=== PATIENT | male | born 1995 ===

== ENCOUNTER 2017-08-21 18:20 | Emergency (ER) | payer MEDICAID, SELFPAY ==
[2017-08-21 18:42] VITALS: O2SAT 99
[2017-08-21] MEDS ORDERED: Psyllium Packet PO STA (19:02)
[2017-08-21] MEDS ORDERED: Sodium Chloride 0.9% 1,000 ML IV SCH (19:15)
--- NOTE | 2017-08-21 19:23 | ED PDOC ---
HPI: Abdomen Time Seen by Provider: 08/21/17 18:54 Chief Complaint (Nursing): Abdominal Pain Chief Complaint (Provider): Diarhhea History Per: Patient History/Exam Limitations: no limitations Onset/Duration Of Symptoms: Days (three ), Persistent Outside of [place] travel?: No Current Symptoms Are (Timing): Still Present Severity: Mild Location Of Pain/Discomfort: Diffuse Quality Of Discomfort: Other (no pain) Associated Symptoms: Diarrhea, Loss Of Appetite Exacerbating Factors: Food Last Bowel Movement: Today Additional History Per: Patient Additional Complaint(s): Pt presents to the ED with complaint of non-painful and non-tender abdomen with four days of diarhhea that began after he consummed a protein shake with milk and a banana. Pt denies fever, nausea (though he is not as hungry as usual) vomiting or other symptoms. Past Medical History Reviewed: Historical Data, Nursing Documentation, Vital Signs Vital Signs: Last Vital Signs Temp 98.7 F 08/21/17 18:37 Pulse 74 08/21/17 18:37 Resp 18 08/21/17 18:37 BP Pulse Ox 99 08/21/17 20:02 - Family History Family History: States: Unknown Family Hx - Allergies Allergies/Adverse Reactions: Allergies Allergy/AdvReac Type Severity Reaction Status Date / Time No Known Allergies Allergy Verified 08/21/17 18:37 Review of Systems ROS Statement: Except As Marked, All Systems Reviewed And Found Negative Gastrointestinal: Positive for: Diarrhea. Negative for: Nausea, Vomiting, Abdominal Pain, Melena, Hematochezia Neurological: Positive for: Headache Physical Exam - Reviewed Nursing Documentation Reviewed: Yes Vital Signs Reviewed: Yes - Physical Exam Appears: Positive for: Well, Non-toxic, No Acute Distress. Negative for: Uncomfortable, In Acute Distress Head Exam: Positive for: ATRAUMATIC, NORMAL INSPECTION Skin: Positive for: Normal Color, Warm, Dry ENT: Positive for: Normal ENT Inspection Neck: Positive for: Normal, Painless ROM, Supple. Negative for: Decreased ROM Cardiovascular/Chest: Positive for: Regular Rate, Rhythm. Negative for: Edema, Gallop, Murmur, Bradycardia, Tachycardia, Friction Rub Respiratory: Positive for: Normal Breath Sounds. Negative for: Decreased Breath Sounds, Accessory Muscle Use, Crackles, Rales, Rhonchi, Stridor, Wheezing , Respiratory Distress Pulses-Carotid (L): 2+ Pulses-Carotid (R): 2+ Pulses-Radial (L): 2+ Pulses-Radial (R): 2+ Gastrointestinal/Abdominal: Positive for: Normal Exam, Bowel Sounds (active in all four quadrants), Soft. Negative for: Tenderness, Mass, Distended, Guarding (merckle sign is (-); rovsing sign (-); tenderness at mcburney point (-); allen sign (-)), Rebound Back: Positive for: Normal Inspection. Negative for: L CVA Tenderness, R CVA Tenderness - Laboratory Results Result Diagrams: 08/21/17 19:10 08/21/17 19:10 - ECG O2 Sat by Pulse Oximetry: 99 Medical Decision Making Medical Decision Making: I: viral gastroenteritis with diarhhea P: blood work and UA fluid hydration IV psyllium PO CBC no clinically significant results CMP no clinically significant results Lipase no clinically significant results UA Disposition - Clinical Impression Clinical Impression: Viral enteritis - Patient ED Disposition Is Patient to be Admitted: No Doctor Will See Patient In The: Office Counseled Patient/Family Regarding: Diagnosis, Need For Followup - Disposition Disposition: Transfer of Care Disposition Time: 20:13 Condition: STABLE Instructions: Diarrhea in Adolescents and Adults, Viral Gastroenteritis, Adult (DC) Forms: [employer] (Latvian)
[2017-08-21 19:43] LABS: BASO % 0.6 % (0.0-2.0); EOS # 0.1 K/uL (0.0-0.7); EOS % 1.6 % (0.0-4.0); LYMPH # 2.2 K/uL (1.0-4.3); LYMPH % 26.8 % (20.0-40.0); MEAN CELL VOLUME 87.6 fl (80.0-94.0); MEAN CORPUSCULAR HEMOGLOBIN 30.2 pg (27.0-31.0); MEAN CORPUSCULAR HGB CONC 34.5 g/dL (33.0-37.0); MEAN PLATELET VOLUME 7.7 fl (7.2-11.7); MONO # 0.6 K/uL (0.0-0.8); MONO % 7.3 % (0.0-10.0); NEUT # 5.2 K/uL (1.8-7.0); NEUT % 63.7 % (50.0-75.0); RBC 4.98 Mil/uL (4.40-5.90); RED CELL DISTRIBUTION WIDTH 12.7 % (11.5-14.5); WHITE BLOOD COUNT 8.2 K/uL (4.8-10.8)
[2017-08-21 19:44] LABS: ALB/GLOB RATIO 1.3 (1.0-2.1); ALBUMIN 4.6 g/dL (3.5-5.0); ALT/SGPT 44 U/L (21-72); AST/SGOT 83 U/L (17-59); BLOOD UREA NITROGEN 11 mg/dl (9-20); CALCIUM 9.3 mg/dL (8.4-10.2); GFR AFRICAN-AMERICAN > 60; GFR NON-AFRICAN AMERICAN > 60; LIPASE 113 U/L (23-300)
[2017-08-21 20:00] LABS: URINE BILIRUBIN NEGATIVE (NEGATIVE); URINE BLOOD NEGATIVE (NEGATIVE); URINE CLARITY CLOUDY (Clear); URINE COLOR YELLOW (YELLOW); URINE GLUCOSE (UA) NEG (Normal); URINE LEUKOCYTE ESTERASE NEG Leu/uL (Negative); URINE PROTEIN NEGATIVE (NEGATIVE); URINE UROBILINOGEN 0.2-1.0 mg/dL (0.2-1.0)
--- NOTE | 2017-08-21 20:31 | ED PDOC ---
- Laboratory Results Result Diagrams: 08/21/17 19:10 08/21/17 19:10 - ECG O2 Sat by Pulse Oximetry: 99 Pulse Ox Interpretation: Normal Medical Decision Making Medical Decision Making: Case was signed out to marketing copywriter from [employer] pending fluids and reevaluation. Patient states he feels better after fluid administration. Patient is aware of all diagnostic testing results, all questions answered. Disposition - Clinical Impression Clinical Impression: Diarrhea, Viral enteritis - POA Present On Arrival: None - Disposition Referrals: Angel Clifford MD [Staff Provider] - Disposition: Routine/Home Disposition Time: 20:40 Condition: STABLE Additional Instructions: Drink plenty of fluids and follow BRAT diet (bananas, rice, apples and toast) relief of diarrhea. Follow-up with interventionist or primary care doctor in 2-3 days. Instructions: Diarrhea in Adolescents and Adults, Viral Gastroenteritis, Adult (DC) Forms: [employer] (Romansh) Results - Lab Results Lab Results: 08/21/17 08/21/17 19:10 19:10 WBC 8.2 RBC 4.98 Hgb 15.0 Hct 43.6 MCV 87.6 MCH 30.2 MCHC 34.5 RDW 12.7 Plt Count 297 MPV 7.7 Neut % (Auto) 63.7 Lymph % (Auto) 26.8 [place] % (Auto) 7.3 Eos % (Auto) 1.6 Baso % (Auto) 0.6 Neut # (Auto) 5.2 Lymph # (Auto) 2.2 [place] # (Auto) 0.6 Eos # (Auto) 0.1 Baso # (Auto) 0.0 Sodium 143 Potassium 3.8 Chloride 100 Carbon Dioxide 29 Anion Gap 18 BUN 11 Creatinine 0.8 Est GFR ( Amer) > 60 Est GFR (Non-Af Amer) > 60 Random Glucose 74 L Calcium 9.3 Total Bilirubin 0.5 AST 83 H D ALT 44 Alkaline Phosphatase 81 Total Protein 8.1 Albumin 4.6 Globulin 3.5 Albumin/Globulin Ratio 1.3 Lipase 113
[2017-08-21 22:52] VITALS: BP 118/65; PULSE 79; RESP 18; TEMP 98
== END 2017-08-21 20:48 | disposition home or self-care (01) ==
LOC: H.ER 18:20
DX: A08.4 Viral intestinal infection, unspecified (principal)
CPT/HCPCS: 80053; 81003; 83690; 85025; 96360; 99284; J7030

== ENCOUNTER 2018-02-12 12:45 | Emergency (ER) | payer SELFPAY ==
--- NOTE | 2018-02-12 13:08 | ED PDOC ---
HPI: Influenza Time Seen by Provider: 02/12/18 13:03 Chief Complaint: ENT Problem Chief Complaint (Provider): Flu-like Symptoms History Per: Patient Exam Limitations: no limitations Onset/Duration Of Symptoms: Days (x3) Additional complaint(s):: 22 year old male presents to the ED for evaluation of a sore throat, fever, dry cough, and body aches for the past three days. Denies other complaints, OTC medication use, and sick contacts. PMD: none provided Past Medical History Reviewed: Historical Data, Nursing Documentation, Vital Signs Vital Signs: Last Vital Signs Temp 99.7 F H 02/12/18 12:50 Pulse 106 H 02/12/18 12:50 Resp 20 02/12/18 12:50 BP 100/58 L 02/12/18 12:50 Pulse Ox 97 02/12/18 12:50 - Medical History PMH: No Chronic Diseases - Surgical History Surgical History: No Surg Hx - Family History Family History: States: Unknown Family Hx - Social History Current smoker - smoking cessation education provided: No - Home Medications Home Medications: Ambulatory Orders Medication Instructions Recorded Ibuprofen [Motrin] 600 mg PO Q8 PRN #21 tab 02/12/18 - Allergies Allergies/Adverse Reactions: Allergies Allergy/AdvReac Type Severity Reaction Status Date / Time No Known Allergies Allergy Verified 02/12/18 12:50 Review of Systems ROS Statement: Except As Marked, All Systems Reviewed And Found Negative Constitutional: Positive for: Fever, Other (bodyaches) ENT: Positive for: Throat Pain Respiratory: Positive for: Cough (dry) Physical Exam - Reviewed Nursing Documentation Reviewed: Yes Vital Signs Reviewed: Yes - Physical Exam Appears: Positive for: No Acute Distress Head Exam: Positive for: ATRAUMATIC, NORMOCEPHALIC Skin: Positive for: Normal Color Eye Exam: Positive for: Normal appearance ENT: Positive for: Normal ENT Inspection. Negative for: Pharyngeal Erythema, Tonsillar Exudate Cardiovascular/Chest: Positive for: Regular Rate, Rhythm Respiratory: Positive for: Normal Breath Sounds. Negative for: Wheezing, Respiratory Distress Neurologic/Psych: Positive for: Alert, Oriented (x3) Medical Decision Making Medical Decision Making: Time: 1256 Initial Impression: flu-like symptoms Initial Plan: --Motrin 600mg PO --Rapid influenza AB swab --Rapid strep swab Scribe Attestation: Documented by Jada Bolaños, acting as a scribe for Bird Rosas PA-C. Provider Scribe Attestation: All medical record entries made by the Scribe were at my direction and personally dictated by me. I have reviewed the chart and agree that the record accurately reflects my personal performance of the history, physical exam, medical decision making, and the department course for this patient. I have also personally directed, reviewed, and agree with the discharge instructions and disposition. - ECG O2 Sat by Pulse Oximetry: 97 (RA) Pulse Ox Interpretation: Normal - Progress ED Course And Treament: INFLUENZA A/B NEG RAPID STREP NEG MOTRIN 600MG X 1 DOSE Disposition - Clinical Impression Clinical Impression: Viral pharyngitis - Patient ED Disposition Is Patient to be Admitted: No - Disposition Referrals: [facility] [place] [Outside] Disposition: Routine/Home Disposition Time: 14:21 Condition: FAIR Prescriptions: Ibuprofen [Motrin] 600 mg PO Q8 PRN #21 tab PRN Reason: Pain, Moderate (4-7) Instructions: Sore Throat in Adults Forms: [facility] ED School/Work Excuse Print Language: WELSH
[2018-02-12 14:39] VITALS: BP 134/70; PULSE 90; RESP 16; TEMP 99.2; O2SAT 98
== END 2018-02-12 14:39 | disposition home or self-care (01) ==
LOC: H.ER 12:45
DX: J11.1 Influenza due to unidentified influenza virus with other respiratory manifestations (principal)

== ENCOUNTER 2018-04-29 16:08 | Emergency (ER) | payer MEDICAID, SELFPAY ==
[2018-04-29 17:34] VITALS: PULSE 67; RESP 18; TEMP 98.4; O2SAT 99
[2018-04-29 17:35] VITALS: BMI 26.5
[2018-04-29 17:36] VITALS: BP 100/54
--- NOTE | 2018-04-29 17:55 | ED PDOC ---
Burn Injury/Smoke Inhalation Time Seen by Provider: 04/29/18 17:41 Chief Complaint (Nursing): Burn Chief Complaint (Provider): Burn History Per: Patient History/Exam Limitations: no limitations Injury Occurred (Timing): Days Ago: (x4) Type Of Burn (Context): Hot Liquid (oil) Additional Complaint(s): 22 year old male presents to the ED for evaluation of a burn to the back of his left hand that he sustained while working with hot oil in the [employer] kitchen four days ago. Patient notes that since onset he has been using ointment on the burn and wrapping it, but wanted to come in today to seek further medical advice on treatment. Denies any discharge from heck. Right hand dominant PMD: Eva Cotto Past Medical History Reviewed: Historical Data, Nursing Documentation, Vital Signs Vital Signs: Last Vital Signs Temp 98.4 F 04/29/18 17:34 Pulse 67 04/29/18 17:34 Resp 18 04/29/18 17:34 BP 100/54 L 04/29/18 17:34 Pulse Ox 99 04/29/18 17:34 - Medical History PMH: No Chronic Diseases - Surgical History Surgical History: No Surg Hx - Family History Family History: States: Unknown Family Hx - Home Medications Home Medications: Ambulatory Orders Medication Instructions Recorded Ibuprofen [Motrin] 600 mg PO Q8 PRN #21 tab 02/12/18 - Allergies Allergies/Adverse Reactions: Allergies Allergy/AdvReac Type Severity Reaction Status Date / Time No Known Allergies Allergy Verified 04/29/18 17:33 Review of Systems ROS Statement: Except As Marked, All Systems Reviewed And Found Negative Skin: Positive for: Other (burn to back of left hand) Physical Exam - Reviewed Nursing Documentation Reviewed: Yes Vital Signs Reviewed: Yes - Physical Exam Appears: Positive for: No Acute Distress Head Exam: Positive for: ATRAUMATIC, NORMOCEPHALIC Skin: Positive for: Warm, Dry Eye Exam: Positive for: Normal appearance Cardiovascular/Chest: Positive for: Regular Rate, Rhythm Respiratory: Positive for: Normal Breath Sounds. Negative for: Respiratory Distress Extremity: Positive for: Capillary Refill (less than 2 seconds all left hand digits), Other (dorsal side of left hand: two small boluses measuring 2x1cm and 1.5x1cm and mild surrounding erythema with blanching; no heck noted to palmar surface of left hand; playroom attendant strength: L: 4/5, R: 5/5) - ECG O2 Sat by Pulse Oximetry: 99 (RA) Pulse Ox Interpretation: Normal Medical Decision Making Medical Decision Making: Time: 1758 Initial Impression: 2nd degree burn of dorsal surface left hand Initial Plan: --Silvadene 1 applic TOP --Wrapping placed to heck. Patient educated on further wound care and return parameters discussed. Advised not to pop the boluses, as it increases risk for infection, but patient to be given script for prophylactic antibiotic upon discharge. Additionally instructed patient to use ice water for hand if it becomes painful. Patient verbalized agreement and understanding of plan and treatment. The patient will be referred to wound care center The patient is stable for discharge --- Scribe Attestation: Documented by Jada Bolaños, acting as a scribe for Rajat Byrd PA-C. Provider Scribe Attestation: All medical record entries made by the Scribe were at my direction and personally dictated by me. I have reviewed the chart and agree that the record accurately reflects my personal performance of the history, physical exam, medical decision making, and the department course for this patient. I have also personally directed, reviewed, and agree with the discharge instructions and disposition. Disposition - Clinical Impression Clinical Impression: Burn injury - Patient ED Disposition Is Patient to be Admitted: No Counseled Patient/Family Regarding: Diagnosis, Need For Followup, Rx Given - Disposition Referrals: [facility] [Outside] Disposition: Routine/Home Disposition Time: 18:15 Condition: STABLE Additional Instructions: Apply silvadene cream and wrap two to three times each day for th enext five days Instructions: Skin Heck, Skin Heck (DC) Forms: [employer] (Estonian)
[2018-04-29] MEDS ORDERED: Silver Sulfadiazine 1% CREAM (50 gm) TOP STA (18:00)
[2018-04-29] MEDS ORDERED: Silver Sulfadiazine 1% CREAM (50 gm) ONE (18:06)
== END 2018-04-29 18:25 | disposition home or self-care (01) ==
LOC: H.ER 16:08
DX: T23.202A Burn of second degree of left hand, unspecified site, initial encounter (principal)